=== PATIENT | female | born 1970 | race Caucasian/White ===

== ENCOUNTER 2018-12-04 08:16 | Emergency (ER) | payer OTHER ==
[2018-12-04 08:26] VITALS: BP 108/75; PULSE 71; TEMP 98.8; BMI 26.6
--- NOTE | 2018-12-04 08:31 | PDOC ---
History of Present Illness - General Chief Complaint: Cold Symptoms Stated Complaint: COUGH Time Seen by Provider: 12/04/18 08:17 - History of Present Illness Initial Comments: 12/04/18 08:39 48yo female with no pmhx presents for eval of a dry, nonproductive cough x 3 weeks. Denies assoc f/c/rhinorrhea/sore throat. States the cough won't go away and she developed L lateral rib pain with the cough. No sob. No conversational dyspnea. No abd pain. No n/v/d. No dysuria. No reyes. No neck pain. Pt states she saw her PMD who told her she had a viral syndrome and that if her symptoms didn' t improve over the weeks she should start azithromycin, which the patient started 3 days ago. States the abx has not made a difference with the cough. Pt is nontoxic in appearance. States her and child have had similar coughs at home, but hers has lasted longer. Pt is ambulatory with a steady gait. Pt states she was taking tessalon perles at the beginning which did not help the cough, states she also took mucinex which did not help the cough. PMhx: denies PShx: c section Allergies: NKDA Past History - Past Medical History Allergies/Adverse Reactions: Allergies Allergy/AdvReac Type Severity Reaction Status Date / Time No Known Allergies Allergy Verified 12/04/18 08:16 Home Medications: Ambulatory Orders Azithromycin 250 mg PO DAILY 12/04/18 Codeine Phosphate/Guaifenesin [Codeine-Guaifen 10-100 mg/5 ml] 5 ml PO HS PRN # 120 liquid MDD 5 ml 12/04/18 Phenylephrine/Dm/Acetaminop/GG [Mucinex Fast-Max Cold-Flu Liq] 180 ml PO PRN COPD: No Other medical history: DENIES - Suicide/Smoking/Psychosocial Hx Smoking History: Never smoked Have you smoked in the past 12 months: No Information on smoking cessation initiated: No Hx Alcohol Use: No Drug/Substance Use Hx: No Review of Systems - Review of Systems Able to Perform ROS?: Yes Is the patient limited Amharic proficient: No Constitutional: No: Chills, Fever HEENTM: No: Nose Pain, Nose Congestion, Throat Pain Respiratory: Yes: Cough. No: Shortness of Breath, Productive cough Cardiac (ROS): Yes: Other (rib pain with the cough). No: Chest Pain, Lightheadedness, Palpitations, Chest Tightness ABD/GI: No: Diarrhea, Nausea, Vomiting, Abdominal cramping : No: Burning, Dysuria Musculoskeletal: No: Back Pain Neurological: No: Headache, Numbness All Other Systems: Reviewed and Negative *Physical Exam - Vital Signs Last Vital Signs Temp Pulse Resp BP Pulse Ox 98.8 F 71 20 108/75 98 12/04/18 08:16 12/04/18 08:16 12/04/18 08:16 12/04/18 08:16 12/04/18 08:16 - Physical Exam General Appearance: Yes: Nourished, Appropriately Dressed. No: Apparent Distress HEENT: positive: EOMI, GEOFF, Normal ENT Inspection, Normal Voice, TMs Normal, Pharynx Normal. negative: Nasal Congestion, Rhinorrhea Neck: positive: Trachea midline, Supple Respiratory/Chest: positive: Wheezing (faint wheezing L base- end expiratory, otherwise clear bs). negative: Chest Tender, Respiratory Distress Cardiovascular: positive: Regular Rhythm, Regular Rate, S1, S2. negative: Edema Gastrointestinal/Abdominal: positive: Normal Bowel Sounds, Flat, Soft. negative : Tender Musculoskeletal: positive: Normal Inspection Extremity: positive: Normal Inspection, Other (ambulatory with a steady gait). negative: Calf Tenderness Integumentary: positive: Normal Color, Dry, Warm Neurologic: positive: Fully Oriented, Alert, Normal Mood/Affect Medical Decision Making - Medical Decision Making 12/04/18 08:44 a/p: 48yo female with a dry nonproductive cough x 3 weeks currently on abx -pt is nontoxic in appearance -dry cough, faint wheezing, will give robitussin and albuterol -cxr to r/o pna, however with clear lungs low suspicion -motrin for chest pain/rib pain with the cough -suspect viral syndrome and less likely bacterial cause given no fevers, rhinorrhea, sore throat, body aches, or toxic appearance and 3 week hx of cough -vss -will monitor and reassess 12/04/18 08:53 urine preg negative pt to cxr 12/04/18 09:08 cxr clear 12/04/18 09:24 pt feeling much better after meds will give cough medicine rx pt states she has an inhaler at home discussed motrin use at home for chest wall pain from the cough re-eval: heart reg, lungs cta pt stable for dc to home and follow up with her PMD. *DC/Admit/Observation/Transfer Diagnosis at time of Disposition: Cough in adult - Discharge Dispostion Disposition: HOME Condition at time of disposition: Stable Decision to Admit order: No - Prescriptions Prescriptions: Codeine Phosphate/Guaifenesin [Codeine-Guaifen 10-100 mg/5 ml] 5 ml PO HS PRN # 120 liquid MDD 5 ml PRN Reason: Cough - Referrals Referrals: Elder Tavera MD [Staff Physician] - - Patient Instructions Printed Discharge Instructions: DI for Viral Upper Respiratory Infection -- Adult Additional Instructions: Please only use the codeine cough medicine at night as needed for severe coughing. Please buy over the counter robitussin for daytime coughing. Please take tylenol or motrin every 6 hours as needed for chest wall pain. Please drink plenty of water. Please follow up with your PMD next week. Please return to the ED with any further concerns or complaints. - Post Discharge Activity - Attestations Physician Attestion: 12/04/18 08:47 I, Dr. Shania Lennon, DO, attest that this document has been prepared under my direction and personally reviewed by me in its entirety. I further attest, that it accurately reflects all work, treatment, procedures and medical decision -making performed by me.
[2018-12-04] MEDS ORDERED: IBUPROFEN 600 MG TABLET (FP) PO ONE ×2 (08:37→08:47)
[2018-12-04] MEDS ORDERED: guaiFENesin 200 MG/10 ML 10 ML UNIT-DOSE CUPS PO ONE (08:37)
[2018-12-04] MEDS ORDERED: ALBUTEROL SO4 2.5/IPRATROPIUM 0.5 INH SOL 3 ML VIAL.NEB. NEB ONE ×2 (08:37→08:47)
[2018-12-04] MEDS ORDERED: guaiFENesin/D-METHORPHAN HB 10 ML UNIT-DOSE CUPS ONE (08:47)
== END 2018-12-04 09:35 | disposition home or self-care (01) ==
LOC: FER 08:16
PROC: 3E0F7GC Introduction of Other Therapeutic Substance into Respiratory Tract, Via Natural or Artificial Opening (ICD-10-PCS; principal; 2018-12-04)
DX: R05 Cough (principal)
CPT/HCPCS: 71046-TC-FY; 99282-25

== ENCOUNTER 2021-06-06 08:16 | Emergency (ER) | payer OTHER ==
[2021-06-06 08:27] VITALS: BMI 24.1
[2021-06-06 08:42] LABS: BASO % 0.8 % (0-2.0); EOS % 2.4 % (0-4.5); HEMATOCRIT 39.8 % (32.4-45.2); HEMOGLOBIN 13.4 GM/dL (10.7-15.3); LYMPH % 35.8 % (8-40); MCH 29.3 pg (25.7-33.7); MCHC 33.7 g/dl (32.0-36.0); MEAN CELL VOLUME 86.9 fl (80-96); MEAN PLT VOLUME 7.7 fl (7.5-11.1); MONO % 13.1 % (3.8-10.2); NEUT % 47.9 % (42.8-82.8); PLATELET COUNT 209 10^3/uL (134-434); RBC 4.59 M/mm3 (3.60-5.2); RDW 13.5 % (11.6-15.6); WHITE BLOOD COUNT 6.1 K/mm3 (4.0-10.0)
[2021-06-06 08:57] LABS: CHLORIDE 108 mmol/L (98-107); SODIUM 140 mmol/L (136-145)
[2021-06-06 08:59] LABS: CALCIUM 8.8 mg/dL (8.5-10.1)
[2021-06-06 09:01] LABS: ALBUMIN 3.7 g/dl (3.4-5.0); ANION GAP 5 MMOL/L (8-16); BLOOD UREA NITROGEN 16.6 mg/dL (7-18); CO2 27 mmol/L (21-32); GLUCOSE,RANDOM 90 mg/dL (74-106)
[2021-06-06 09:02] LABS: SGPT/ALT 15 U/L (13-61)
[2021-06-06 09:03] LABS: CREATININE 0.9 mg/dL (0.55-1.3); SGOT/AST 23 U/L (15-37)
[2021-06-06 09:04] LABS: BILIRUBIN,TOTAL 0.6 mg/dL (0.2-1); TOT PROT 7.1 g/dl (6.4-8.2)
[2021-06-06 09:05] LABS: ALK PHOS 54 U/L (45-117)
[2021-06-06 09:07] LABS: INR 0.96 (0.83-1.09); PROTHROMBIN TIME (PATIENT) 10.7 SEC (9.7-13.0)
[2021-06-06 09:10] LABS: ACTIVATED PTT 26.9 SECONDS (25.2-36.5)
[2021-06-06] MEDS ORDERED: LIDOCAINE 5% TOPICAL PATCH TP ONE (09:18)
[2021-06-06] MEDS ORDERED: ASPIRIN 81 MG CHEWABLE TABLETS PO ONE (09:18)
[2021-06-06] MEDS ORDERED: MAG HYDROX/AL HYDROX/SIMETH 30 ML UNIT-DOSE CUP PO ONE (09:21)
[2021-06-06] MEDS ORDERED: FAMOTIDINE 20 MG/50 ML IVPB 20 MG/50 ML MG IVPB ONE ×2 (09:21→09:40)
[2021-06-06] MEDS ORDERED: ASPIRIN 81 MG CHEWABLE TABLETS ONE (09:39)
[2021-06-06] MEDS ORDERED: LIDOCAINE 5% TOPICAL PATCH ONE (09:39)
[2021-06-06] MEDS ORDERED: MAG HYDROX/AL HYDROX/SIMETH 30 ML UNIT-DOSE CUP ONE (09:39)
[2021-06-06 13:30] VITALS: BP 106/65; PULSE 60; TEMP 98
[2021-06-06] MEDS ORDERED: LIDOCAINE PATCH REMOVAL MC ONE (22:00)
== END 2021-06-06 13:43 | disposition home or self-care (01) ==
LOC: JER 08:16
PROC: 3E033NZ Introduction of Analgesics, Hypnotics, Sedatives into Peripheral Vein, Percutaneous Approach (ICD-10-PCS; principal; 2021-06-06)
DX: R07.9 Chest pain, unspecified (principal)
CPT/HCPCS: 36415; 71046-TC-FY; 80053; 82550; 84484; 85025; 85379; 85610; 85730; 93005; 93010; 99284-25

== ENCOUNTER 2022-05-23 04:27 | Day surgery (SDC) | payer OTHER ==
[2022-05-23 07:20] VITALS: BMI 27.1
[2022-05-23 08:51] VITALS: TEMP 97.7
[2022-05-23 09:36] VITALS: BP 100/51; PULSE 60; RESP 13
== END 2022-05-23 09:37 | disposition home or self-care (01) ==
LOC: JASU-ENDO 04:27
PROVIDERS: ATTEND Internal Medicine Gastroenterology
PROC: 0DB98ZX Excision of Duodenum, Via Natural or Artificial Opening Endoscopic, Diagnostic (ICD-10-PCS; 2022-05-23)
PROC: 0DB78ZX Excision of Stomach, Pylorus, Via Natural or Artificial Opening Endoscopic, Diagnostic (ICD-10-PCS; 2022-05-23)
PROC: 0DBN8ZX Excision of Sigmoid Colon, Via Natural or Artificial Opening Endoscopic, Diagnostic (ICD-10-PCS; principal; 2022-05-23 08:00)
DX: Z12.11 Encounter for screening for malignant neoplasm of colon (principal); K63.5 Polyp of colon; K64.8 Other hemorrhoids; K29.70 Gastritis, unspecified, without bleeding; Z83.71 Family history of colonic polyps; Z80.0 Family history of malignant neoplasm of digestive organs
CPT/HCPCS: 81025; 88305-TC; 88342-TC